=== PATIENT | female | born 1930 | race Caucasian/White ===

== ENCOUNTER → 2017-11-13 | Outpatient (CLI) | payer MEDICARE ==
--- NOTE | 2017-11-13 16:48 | Diagnostic Imaging Report ---
PROCEDURE: Transabdominal and transvaginal ultrasound imaging of the pelvis was performed. COMPARISON: Transvaginal ultrasound 08/06/2016. INDICATIONS: POST MENOPAUSAL BLEEDING FINDINGS: UTERUS: The uterus measures 7.1 x 4.1 x 7.2 cm. Enlarged. The endometrial echocomplex measures 2.4 cm. The endometrium is thickened and heterogenous. A focal echogenic lesion is present in the endometrium measuring 0.6 x 0.6 preserved 0.5 cm. Two separate focal hypoechoic lesions are present in the endometrium, measuring 0.8 x 0.6 x 0.8 cm and 1.1 x 0.9 x 1.0 cm, respectively. Multiple fibroids are present within the uterus. OVARIES/ADNEXA: No adnexal mass. Right ovary: 2.6 x 1.3 x 2.6 cm. Left ovary: Not visualized. PELVIS: No free fluid. IMPRESSION: Thickened endometrium with echogenic and hypoechoic lesions is indeterminate. A MRI of the pelvis with contrast may provide additional information for further characterization. Multiple uterine fibroids. Dictated by: Artem Reyez M.D. on 11/13/2017 at 16:49 Electronically approved by: Artem Reyez M.D. on 11/13/2017 at 16:49
== END ==
LOC: US 12:55
PROVIDERS: ATTEND Obstetrics & Gynecology
DX: N95.0 Postmenopausal bleeding (principal)
CPT/HCPCS: 76830

== ENCOUNTER 2019-09-08 17:47 | Observation (INO) | payer MEDICARE ==
[~2019-09-08] VITALS: Ht 157.5 cm; Wt 46.3 kg
--- OUTSIDE RECORDS SUMMARY | 2019-09-08 17:49 | XMS REPORT ---
Author Author [facility] Address Unknown Phone Unavailable Care Team Providers Care Data Deliverables Manager Name Role Phone Josi ANG Unavailable Unavailable Problems This patient has no known problems. Allergies, Adverse Reactions, Alerts This patient has no known allergies or adverse reactions. Medications This patient has no known medications. Results Test Description Test Time Test Comments Text Results Atomic Results Result Comments US TRANSVAGINAL [place] [address] Patient Name: TYLOR MONTANA MR #: [id number] : 1930 Age/Sex: 87/F Req #: [id number] Adm Physician: Ordered by: JODI ANG M.D. Report #: [id number] Location: Room/Bed: Procedure: [id number] US/US TRANSVAGINAL Exam Date: Exam Time: REPORT STATUS: Signed PROCEDURE: Transabdominal and transvaginal ultrasound imaging of the pelvis was performed. COMPARISON: Transvaginal ultrasound 08/06/2016. INDICATIONS: POST MENOPAUSAL BLEEDING FINDINGS: UTERUS: The uterus measures 7.1 x 4.1 x 7.2 cm. Enlarged. The endometrial echocomplex measures 2.4 cm. The endometrium is thickened and heterogenous. A focal echogenic lesion is present in the endometrium measuring 0.6 x 0.6 preserved 0.5 cm. Two separate focal hypoechoic lesions are present in the endometrium, measuring 0.8 x 0.6 x 0.8 cm and 1.1 x 0.9 x 1.0 cm, respectively. Multiple fibroids are present within the uterus. OVARIES/ADNEXA: No adnexal mass. Right ovary: 2.6 x 1.3 x 2.6 cm. Left ovary: Not visualized. PELVIS: No free fluid. IMPRESSION: Thickened endometrium with echogenic and hypoechoic lesions is indeterminate. A MRI of the pelvis with contrast may provide additional information for further characterization. Multiple uterine fibroids. Dictated by: Justin Arreguin M.D. on 11/13/2017 at 16:49 Electronically approved by: Justin Arreguin M.D. on 11/13/2017 at 16:49 Dictated By: JUSTIN ARREGUIN MD [id number] Transcribed By: SHANNAN on 11/13/17 1649 COPY TO: JODI ANG M.D.
[2019-09-08 19:49] LABS: BASOPHILS % 0.4 % (0.0-1.0); EOSINOPHILS % 0.3 % (0.0-6.0); HEMATOCRIT 23.5 % (34.2-44.1); LYMPHOCYTES # (AUTO) 1.5 (1.0-3.2); LYMPHOCYTES % 18.6 % (18.0-39.1); MEAN CORPUSCULAR HEMOGLOBIN 18.2 pg (28-32); MEAN CORPUSCULAR HGB CONC 27.2 g/dL (31-35); MEAN CORPUSCULAR VOLUME 66.8 fL (81-99); MONOCYTES # (AUTO) 0.8 (0.2-0.8); MONOCYTES % 9.6 % (4.4-11.3); NEUTROPHILS # (AUTO) 5.6 (2.1-6.9); NEUTROPHILS % 70.7 % (38.7-80.0); PLATELET COUNT 213 x10e3/uL (140-360); RED BLOOD COUNT 3.52 x10e6/uL (3.6-5.1); RED CELL DISTRIBUTION WIDTH 20.8 % (11.7-14.4)
[2019-09-08 19:59] LABS: HEMOGLOBIN 6.4 g/dL (12.0-16.0)
[2019-09-08 20:17] LABS: ALANINE AMINOTRANSFERASE 14 IU/L (0-55); ALBUMIN 3.7 g/dL (3.5-5.0); ALBUMIN/GLOBULIN RATIO 1.1 (0.8-2.0); ALKALINE PHOSPHATASE 58 IU/L (40-150); ANION GAP 13.8 mmol/L (8-16); BLOOD UREA NITROGEN 34 mg/dL (7-26); BUN/CREATININE RATIO 40 (6-25); CALCIUM 8.9 mg/dL (8.4-10.2); CARBON DIOXIDE 28 mmol/L (22-29); CHLORIDE 100 mmol/L (98-107); CREATININE, SERUM 0.84 mg/dL (0.57-1.11); EST GLOMERULAR FILTRATION RATE > 60 ML/MIN (60-); GLUCOSE 93 mg/dL (74-118); SODIUM 136 mmol/L (136-145)
[2019-09-08 20:18] LABS: POTASSIUM 5.8 mmol/L (3.5-5.1)
[2019-09-08 20:33] LABS: CREATINE KINASE 64 IU/L (29-168)
[2019-09-08] MEDS ORDERED: SODIUM CHLORIDE 0.9% 250ML 250 ML IV ONE (21:15)
[2019-09-08] MEDS ORDERED: IOPAMIDOL 370 MG/ML 200 ML INFUS..BTL INJ ONE (23:37)
[2019-09-08] MEDS ORDERED: SODIUM CHLORIDE 0.9% 50ML 50 ML ONE (23:38)
--- NOTE | 2019-09-09 00:29 | Diagnostic Imaging Report ---
CT Abdomen And Pelvis with Intravenous Contrast INDICATION: Low hemoglobin ^abd pain ^[id number] ^[id number] TECHNIQUE: Thin collimation axial images obtained from the diaphragm to the level of the pubic symphysis following the uneventful administration of 100 cc of low osmolar, nonionic intravenous contrast. Dose reduction techniques used: Automated exposure control, adjustment of the mAs and/or kVp according to patient size, standardized low-dose protocol, and/or iterative reconstruction technique. RADIATION DOSE: Total DLP: 153.95 mGy*cm Estimated effective dose: (DLP x 0.015 x size factor) mSv CTDIvol has been reviewed. It is below the limits set by the Radiation Protocol Committee (RPC). COMPARISON: None. ABDOMEN FINDINGS: Lung Bases: Mild hyperinflation. There are impacted bronchiole 7 posterior left costophrenic angle. Impacted bronchiole versus noncalcified nodule in the right lower lobe measures 5 mm. The heart is mildly enlarged. The descending thoracic aorta is tortuous. Liver: Normal attenuation. Multiple calcified granulomata. 2 adjacent cysts in the dome have a combined size of 13 mm. Gallbladder: Present and collapsed round multiple calcified gallstones. No biliary ductal dilatation. Pancreas: Normal attenuation without mass or ductal dilatation. Spleen: Normal in size. No evidence of mass. Adrenal Glands: No evidence for mass. Kidneys: Right: Under rotated. Normal enhancement of parenchyma. No soft tissue mass. No hydronephrosis. Left: Normal enhancement. No soft tissue mass. No hydronephrosis. Lymph Nodes: No lymphadenopathy. Aorta: Tortuous with diffuse calcifications. No aneurysmal dilatation PELVIS FINDINGS: Bowel: Stomach: Normal. Small Bowel: Normal in caliber with normal wall thickness. Large Bowel: Large stool burden. No focal mural thickening or pericolonic inflammation. Appendix: Not visualized. Bladder: Well distended and normal. The uterus is present and contains a heterogeneously enhancing mass measuring 6.8 x 6.6 cm. There are multiple calcified fibroids throughout the uterus. Neither ovary is visualized. Peritoneum/retroperitoneum: No free fluid or fluid collection. Bones: Dextroscoliosis of the thoracolumbar spine. Mild diffuse degenerative changes. No compression fracture. No lytic lesions. Soft tissues: Unremarkable.. IMPRESSION: 1. Heterogeneously enhancing mass within the uterus. 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 MRI can be performed to confirm intrauterine location and to exclude an ovarian neoplasm. 2. Large stool burden. Please correlate for signs/symptoms of constipation. No bowel obstruction or bowel inflammation. 3. Cholelithiasis. 4. COPD. Areas of mucus impaction in the lung bases as described above. 5. Atherosclerosis and cardiomegaly. Signed by: Dr. Braulio Frausto MD on 09/09/2019 12:27 AM
[2019-09-09] MEDS ORDERED: DEXTROSE 50% SYRINGE 50 ML IV STA (01:01)
[2019-09-09] MEDS ORDERED: CALCIUM GLUCONATE 10% INJ 4.65 MEQ in SODIUM CHLORIDE 0.9% 50ML 50 ML IV ONE (01:15)
[2019-09-09] MEDS ORDERED: INSULIN REGULAR, HUMAN 100 UNIT/1 ML 3ML VIAL IV ONE (01:15)
--- NOTE | 2019-09-09 03:55 | NUR ---
PATIENTS BLOOD TRANSFUSION SHEET PLACED IN PATIENTS FILE , SHEET COMPLETED IN FULL
[2019-09-09] MEDS ORDERED: FUROSEMIDE INJ 10 MG/ML 4 ML VIAL IV ONE (04:00)
[2019-09-09] MEDS ORDERED: SODIUM CHLORIDE 0.9% 250ML 250 ML ONE (04:21)
--- NOTE | 2019-09-09 06:15 | NUR ---
RECEIVED PATIENT FROM ER IN STABLE CONDITION, NO SIGNS OF DISTRESS NOTED. DAUGHTER AT BEDSIDE AND PATIENT'S BLOOD PRESSURE IS ELEVATED AND GETTING MEDICATION TO TREAT IT. PATIENT IS RECEIVING SECOND UNIT OF BLOOD, NO SIGNS OF REACTIONS NOTED, AND PUREWICK IS INTACT AND FLOWING. BED IS IN LOWEST POSITION, BOTH SIDE RAILS ARE UP, CALL LIGHT WITHIN REACH, WILL CONTINUE TO MONITOR.
[2019-09-09] MEDS ORDERED: CLONIDINE HCL 0.1 MG TAB PO PRN (06:30)
[2019-09-09] MEDS ORDERED: CLONIDINE HCL 0.1 MG TAB PO ONE (06:50)
--- NOTE | 2019-09-09 06:51 | History and Physical ---
REASON FOR ADMISSION: 1. Vaginal bleeding. 2. Symptomatic anemia. HISTORY OF PRESENT ILLNESS: The patient is an 88-year-old lady with a history of severe fibroids, who has been seen by Outpatient Gynecology who unfortunately still has continued bleeding despite efforts to control bleeding where she presented with a hemoglobin of 6, so she has been admitted for symptomatic anemia for transfusion. PAST MEDICAL HISTORY: COPD, hypertension and fibroid. MEDICATIONS: See MAR. ALLERGIES: CODEINE AND PENICILLIN. SOCIAL HISTORY: Nonsmoker. Nondrinker. FAMILY HISTORY: Hypertension. PHYSICAL EXAMINATION: VITAL SIGNS: Temperature 98.6, blood pressure 187/74, pulse 70, sats 100% on room air. GENERAL: No apparent distress, lying in bed. NECK: Supple. CARDIOVASCULAR: Regular rate and rhythm. LUNGS: Decreased breath sounds bilaterally. ABDOMEN: Good bowel sounds. Soft, nontender. EXTREMITIES: No clubbing or cyanosis. NEUROLOGIC: Nonfocal. ASSESSMENT/PLAN: 1. Anemia. We will go ahead and transfuse her 2 units and recheck her blood count. 2. Hyperkalemia. We will monitor and recheck. 3. Hypertension. We will restart her home medicines and use clonidine p.r.n. 4. Chronic obstructive pulmonary disease. We will continue to monitor. 5. Fibroid. 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 Please see hospital chart for details. MD AFSANEH Wilkerson/SHERI /[id number]
--- NOTE | 2019-09-09 07:35 | NUR ---
PATIENT DONE WITH SECOND UNIT OF BLOOD.
[2019-09-09 08:01] VITALS: BP 206/95
[2019-09-09 08:53] VITALS: BP 206/95
[2019-09-09 10:09] LABS: BASOPHILS % 0.3 % (0.0-1.0); EOSINOPHILS % 0.1 % (0.0-6.0); HEMATOCRIT 30.9 % (34.2-44.1); HEMOGLOBIN 9.6 g/dL (12.0-16.0); LYMPHOCYTES # (AUTO) 1.4 (1.0-3.2); LYMPHOCYTES % 12.6 % (18.0-39.1); MEAN CORPUSCULAR HEMOGLOBIN 21.6 pg (28-32); MEAN CORPUSCULAR HGB CONC 31.1 g/dL (31-35); MEAN CORPUSCULAR VOLUME 69.4 fL (81-99); MONOCYTES # (AUTO) 1.6 (0.2-0.8); MONOCYTES % 14.4 % (4.4-11.3); NEUTROPHILS # (AUTO) 7.9 (2.1-6.9); NEUTROPHILS % 72.1 % (38.7-80.0); PLATELET COUNT 166 x10e3/uL (140-360); RED BLOOD COUNT 4.45 x10e6/uL (3.6-5.1); RED CELL DISTRIBUTION WIDTH 21.8 % (11.7-14.4)
[2019-09-09 10:30] LABS: ANION GAP 10.9 mmol/L (8-16); BLOOD UREA NITROGEN 31 mg/dL (7-26); BUN/CREATININE RATIO 38 (6-25); CALCIUM 8.8 mg/dL (8.4-10.2); CARBON DIOXIDE 33 mmol/L (22-29); CHLORIDE 97 mmol/L (98-107); CREATININE, SERUM 0.81 mg/dL (0.57-1.11); EST GLOMERULAR FILTRATION RATE > 60 ML/MIN (60-); GLUCOSE 91 mg/dL (74-118); POTASSIUM 3.9 mmol/L (3.5-5.1); SODIUM 137 mmol/L (136-145)
[2019-09-09 13:05] VITALS: BP 158/70
[2019-09-09 16:50] VITALS: BP 149/70
[2019-09-09] MEDS ORDERED: METOPROLOL TART50 MG PO (16:59)
--- NOTE | 2019-09-09 19:00 | NUR ---
RECEIVED BEDSIDE SHIFT REPORT FROM PREVIOUS NURSE. CALL LIGHT WITHIN REACH. PATIENT IN BED. FAMILY AT BEDSIDE
[2019-09-09 20:00] VITALS: BP 134/66
[2019-09-09 20:14] VITALS: BP_SYST 134; BP_SYST 149; BP_DIAS 66; BP_DIAS 70
[2019-09-09] MEDS: METOPROLOL TARTRATE 50 MG TAB PO SCH (20:15)
[2019-09-10] VITALS: BP 141/65
[2019-09-10 04:00] VITALS: BP 151/72
[2019-09-10 06:11] LABS: BASOPHILS % 0.3 % (0.0-1.0); EOSINOPHILS # (AUTO) 0.2 (0.0-0.4); EOSINOPHILS % 2.6 % (0.0-6.0); HEMATOCRIT 33.9 % (34.2-44.1); HEMOGLOBIN 10.1 g/dL (12.0-16.0); LYMPHOCYTES # (AUTO) 1.9 (1.0-3.2); LYMPHOCYTES % 20.4 % (18.0-39.1); MEAN CORPUSCULAR HEMOGLOBIN 21.2 pg (28-32); MEAN CORPUSCULAR HGB CONC 29.8 g/dL (31-35); MEAN CORPUSCULAR VOLUME 71.1 fL (81-99); MONOCYTES # (AUTO) 1.2 (0.2-0.8); MONOCYTES % 13.2 % (4.4-11.3); NEUTROPHILS # (AUTO) 5.8 (2.1-6.9); NEUTROPHILS % 63.2 % (38.7-80.0); PLATELET COUNT 159 x10e3/uL (140-360); RED BLOOD COUNT 4.77 x10e6/uL (3.6-5.1); RED CELL DISTRIBUTION WIDTH 23.2 % (11.7-14.4)
--- NOTE | 2019-09-10 07:13 | NUR ---
GAVE BEDSIDE SHIFT REPORT FROM PREVIOUS NURSE. CALL LIGHT WITHIN REACH. PATIENT IN BED. PATIENT IS A&OX3.
[2019-09-10 08:00] LABS: EOSINOPHILS % (MANUAL) 2 % (0-7); LYMPHOCYTES % (MANUAL) 15 % (19-48); MONOCYTES % (MANUAL) 22 % (3.4-9.0); NEUTROPHILS % (MANUAL) 61 % (40-74)
[2019-09-10] MEDS: METOPROLOL TARTRATE 50 MG TAB PO SCH (08:00)
[2019-09-10 08:03] VITALS: BP 185/81
[2019-09-10 08:30] VITALS: BP 185/81
--- NOTE | 2019-09-10 10:48 | NUR ---
DISCHARGE INSTRUCTIONS REVIEWED, PT AND FAMILY VERBALIZED UNDERSTANDING, WHEELED OFF UNIT VIA WC FOR DISCHARGE, NO CHANGE IN CONDITION
== END 2019-09-10 10:38 | disposition home or self-care (01) ==
LOC: ER 17:47 → ERHOLD 09-09 04:49 → MED/SURG 09-09 05:55
PROVIDERS: ADMIT Internal Medicine; ATTEND Internal Medicine
DX: D50.0 Iron deficiency anemia secondary to blood loss (chronic) (principal); E87.5 Hyperkalemia; I10 Essential (primary) hypertension; J44.9 Chronic obstructive pulmonary disease, unspecified; D25.9 Leiomyoma of uterus, unspecified; Z88.5 Allergy status to narcotic agent; Z88.0 Allergy status to penicillin
CPT/HCPCS: 36415 ×3; 36430; 74177; 80048; 80053; 82550; 82553; 83880; 84484; 85025 ×3; 86850; 86900; 86920 ×2; 93005; 99284; G0378 ×2; J0610; J1817; J1940; J7050 ×2; J7799; P9016; Q9967

== ENCOUNTER 2019-10-13 14:32 | Emergency (ER) | payer MEDICARE ==
[~2019-10-13] VITALS: Ht 157.5 cm; Wt 46.3 kg
[~2019-10-13 14:32] MED LIST: METOPROLOL TART50 MG PO
[2019-10-13] MEDS ORDERED: ASPIRIN 81 MG CHEW TAB PO ONE (14:45)
[2019-10-13 15:20] LABS: BASOPHILS % 0.4 % (0.0-1.0); EOSINOPHILS % 0.4 % (0.0-6.0); HEMATOCRIT 40.3 % (34.2-44.1); HEMOGLOBIN 11.7 g/dL (12.0-16.0); LYMPHOCYTES # (AUTO) 2.1 (1.0-3.2); LYMPHOCYTES % 25.3 % (18.0-39.1); MEAN CORPUSCULAR HEMOGLOBIN 22.9 pg (28-32); MEAN CORPUSCULAR VOLUME 78.7 fL (81-99); MONOCYTES # (AUTO) 0.6 (0.2-0.8); MONOCYTES % 7.2 % (4.4-11.3); NEUTROPHILS # (AUTO) 5.4 (2.1-6.9); NEUTROPHILS % 66.5 % (38.7-80.0); PLATELET COUNT 180 x10e3/uL (140-360); RED BLOOD COUNT 5.12 x10e6/uL (3.6-5.1); RED CELL DISTRIBUTION WIDTH 27.9 % (11.7-14.4)
[2019-10-13 15:30] LABS: INR 0.88; PROTHROMBIN TIME 12.4 seconds (11.9-14.5)
[2019-10-13 15:31] LABS: PARTIAL THROMBOPLASTIN TIME 28.7 seconds (23.8-35.5)
[2019-10-13 15:38] LABS: ALANINE AMINOTRANSFERASE 18 IU/L (0-55); ALBUMIN 4.3 g/dL (3.5-5.0); ALKALINE PHOSPHATASE 63 IU/L (40-150); BLOOD UREA NITROGEN 26 mg/dL (7-26); BUN/CREATININE RATIO 31 (6-25); CALCIUM 9.8 mg/dL (8.4-10.2); CARBON DIOXIDE 31 mmol/L (22-29); CHLORIDE 98 mmol/L (98-107); CREATINE KINASE 136 IU/L (29-168); CREATININE, SERUM 0.83 mg/dL (0.57-1.11); EST GLOMERULAR FILTRATION RATE > 60 ML/MIN (60-); GLUCOSE 90 mg/dL (74-118); SODIUM 138 mmol/L (136-145)
[2019-10-13] MEDS ORDERED: HYDRALAZINE HCL 20 MG/ML VIAL IV STA (15:41)
== END 2019-10-13 18:46 | disposition other institution (70) ==
LOC: ER 14:32
DX: M79.662 Pain in left lower leg (principal); I82.432 Acute embolism and thrombosis of left popliteal vein; N93.8 Other specified abnormal uterine and vaginal bleeding; I10 Essential (primary) hypertension
CPT/HCPCS: 36415; 80053; 82550; 82553; 84484; 85025; 85610; 85730; 99284